=== PATIENT | female | born 1985 | race African-American/Black ===

== ENCOUNTER 2018-01-06 23:42 | Emergency (ER) | payer MEDICARE, MEDICAID ==
[~2018-01-06] VITALS: Ht 157.5 cm; Wt 59.9 kg
[2018-01-07] MEDS: HYDROMORPHONE INJ 0.5 MG/0.5 ML SYRINGE IM ONE (01:00)
[2018-01-07] MEDS: diphenhydrAMINE HCL 50 MG/ML VIAL IM ONE (01:00)
[2018-01-07] MEDS ORDERED: HYDROMORPHONE INJ 2 MG/ML DISP.SYRIN ONE ×2 (01:07→02:34)
[2018-01-07] MEDS ORDERED: ONDANSETRON 4 MG TAB.RAPDIS ONE (01:07)
[2018-01-07] MEDS ORDERED: diphenhydrAMINE HCL 50 MG/ML VIAL ONE (01:07)
[2018-01-07 01:14] LABS: APPEARANCE,URINE SL CLOUDY (CLEAR); BILIRUBIN,URINE NEGATIVE (NEGATIVE); BLOOD, URINE TRACE-INTA Ery/uL (NEGATIVE); COLOR,URINE YELLOW (YELLOW); KETONES,URINE NEGATIVE (NEGATIVE); LEUKOCYTE ESTERASE ,URINE NEGATIVE (NEGATIVE); NITRITE, URINE NEGATIVE (NEGATIVE); PROTEIN,URINE TRACE mg/dl (NEGATIVE); UGLUCOSE NEGATIVE (NEGATIVE); UROBILINOGEN,URINE 0.2 EU/dL (0.2)
[2018-01-07] MEDS: ONDANSETRON 4 MG TAB.RAPDIS PO ONE (01:19)
[2018-01-07 01:23] LABS: BACTERIA,URINE None seen /HPF (None Seen); HYALINE CASTS, URINE Few /LPF (None Seen); SQUAMOUS EPITHELIAL CELL,UR Moderate /HPF (None Seen); WBC,URINE 0-2 /HPF (0-3)
[2018-01-07] MEDS ORDERED: TRAZODONE 50 MG TABLET ONE (01:38)
[2018-01-07 02:05] VITALS: BP 126/77
[2018-01-07] MEDS: TRAZODONE 50 MG TABLET PO ONE (02:15)
[2018-01-07] MEDS: QUETIAPINE FUMARATE 100 MG TABLET PO SCH (02:15)
[2018-01-07] MEDS: QUETIAPINE FUMARATE 100 MG TABLET ONE (02:16)
[2018-01-07] MEDS: HYDROMORPHONE INJ 2 MG/ML DISP.SYRIN IM ONE (02:30)
== END 2018-01-07 02:47 | disposition home or self-care (01) ==
LOC: ER 23:42 → EDBD 23:42 → ER 01-07 02:47
DX: M79.1 Myalgia (principal); D57.1 Sickle-cell disease without crisis; J45.909 Unspecified asthma, uncomplicated; F41.9 Anxiety disorder, unspecified; F32.9 Major depressive disorder, single episode, unspecified; Z88.6 Allergy status to analgesic agent; Z88.8 Allergy status to other drugs, medicaments and biological substances
CPT/HCPCS: 81000-TC; 84703-TC; A4606; J1170; J1200; Q0162; Z7610